=== PATIENT | male | born 1955 | race Caucasian/White ===

== ENCOUNTER 2017-05-20 11:39 | Emergency (ER) | payer BC ==
[~2017-05-20] VITALS: Ht 180.3 cm; Wt 79.9 kg
[2017-05-20 11:59] VITALS: TEMP 36.5; Ht 180.3 cm; Wt 79.9 kg
[2017-05-20] MEDS ORDERED: LEVO175T3 PO (13:44)
[2017-05-20] MEDS ORDERED: SILO8CAP PO (13:44)
[2017-05-20] MEDS ORDERED: LIDOCAINE HCL 2% JELLY 30 ML TUBE EXT PRN (14:00)
[2017-05-20] MEDS ORDERED: AZIT250T PO (14:11)
[2017-05-20 14:38] VITALS: BP 116/88; PULSE 97; O2SAT 97
--- NOTE | 2017-05-20 17:04 | EMERGENCY ROOM VISIT NOTE ---
History First contact with patient: 12:09 Chief Complaint: UNABLE TO VOID Stated Complaint: UNABLE TO URINATE-UNABLE TO SUCCESSFULLY USE CATH Nursing Triage Summary: Pt with TURP on 04/06/17. "I have a bladder that can hold 2-3L of urine and I never realized it." After TURP, pts urethra started to heal and fuse together. Pt then had a follow up procedure for that and has been self cathing 1-2 times a day to maintain patency of urethra. Pt last voided on 05/19/17 2200. Pt originally from [place], here for interview and visiting parents. Pt planned to return to [place] today but father passed. Pt had one catheter left for this AM and he was unable to pass it into the bladder. Called urologist in [place] and was advised to come to ED. History of Present Illness The patient is a 62 year old white male who presents to the Emergency Room with complaints of inability to void. Patient recently had a TURP performed at [facility] 14 weeks ago. He states that he previously had an oversized bladder that could hold 2-3 L of urine. After the TURP, he was having residual volumes of around 600 mL. He was having to catheterize himself daily to keep strictures from forming. He did have one previous episode of retention due to urethral stricture. He was able to catheterize himself last night. This morning, he was unable. He tried several times without success. He spoke with his urologist and was recommended to come to the ED for catheter placement. He denies any nausea or vomiting. He denies any discomfort. No abdominal pain. No other issues. Patient is in town because his father on Sunday. is tomorrow. Review of Systems REVIEW OF SYSTEM: HEENT: No dizziness, visual problems, hearing loss, or tinnitus. There is no difficulty swallowing and no oral lesions are present. PULMONARY: No cough, shortness of breath, sputum production or hemoptysis. CARDIOVASCULAR: No chest pain, palpitations, shortness of breath or peripheral edema. GASTROINTESTINAL: No diarrhea, constipation, nausea, vomiting, or abdominal pain. GENITOURINARY: No dysuria, frequency, urgency or nocturia. Positive for urinary retention NEUROLOGIC: No weakness, muscle tenderness, epilepsy or history of neurological problems. MUSCULOSKELETAL: No history of joint tenderness/swelling. No history of arthritis or arthralgias. SKIN: No rashes or lesions. PSYCHIATRIC: No history of depression or mental illness. ENDOCRINE: No history of diabetes, thyroid disorders, or abnormal hair growth. Past Medical/Surgical History Previous surgeries: TURP 02/03/2017 Medical history: Significant for oversized bladder and history of DVT Family History Significant for heart disease, hypertension, and cancer. Father is . He just 2 days ago. Social History Smoking Status: Never Smoker Smokeless Tobacco Use: No Alcohol Use: none Drug Use: none Marital Status: single, in relationship Housing Status: lives with significant other Occupation Status: unemployed Current/Historical Medications Scheduled Azithromycin (Zithromax), 250 MG PO DAILY Levothyroxine Sodium (Levothyroxine Sodium), 1 TAB PO DAILY Silodosin (Rapaflo), 1 CAP PO DAILY Physical Exam Vital Signs Date Time Temp Pulse Resp B/P (MAP) Pulse Ox O2 Delivery O2 Flow Rate FiO2 05/20/17 14:38 97 18 116/88 97 05/20/17 14:22 97 18 116/88 97 Room Air 05/20/17 11:59 36.5 71 18 143/96 96 Room Air Physical Exam Gen.: Well-developed, well-nourished, middle-aged white male, in no acute distress. Laying on a bed. Alert and oriented. Skin:Warm and dry with good turgor. No rashes or lesions. No ecchymosis or erythema. The patient is not diaphoretic. No abrasions. Abdomen: Abdomen was inspected, auscultated, and palpated. Bowel sounds present x 4. Mildly firm, nontender to palpation. No hepato-splenomegaly. No masses noted. No rebound. No pain over McBurney's point. Palpable distention to the bladder. No CVA tenderness. Genitalia: Normal-appearing external genitalia. No discomfort with palpation. Medical Decision & Procedures ER Provider Diagnostic Interpretation: Bladder scan reveals greater than 1000 ML of retained urine. Medications Administered Medications (Trade) Dose Ordered Sig/Edinson Route Start Time Stop Time Status Last Admin Dose Admin Lidocaine HCl (Xylocaine Jelly 2%) 30 ml TID PRN EXT 05/20/17 14:00 06/19/17 13:59 05/20/17 14:32 30 ML Lidocaine topical jelly 2% ED Course Patient was educated regarding today's findings. Conservative care measures were discussed. He was unable to pass a catheter at home. He does have a large volume of retained urine. Straight catheter was placed here by the manufacturing technician. He obtained more than 1600 mL of urine. Leg bag was attached. Patient will keep the catheter in place for the next 48-72 hours. He was covered with Zithromax 250 mg daily for antibiotic prophylaxis. He stated he didn't get frequent discomfort at the tip of his penis from catheter irritation. He was given a tube of lidocaine jelly to be used when necessary. Follow up with his urologist as soon as possible to discuss further intervention. Clearly the urinary retention is back with much larger volumes of retained urine. Return to the nearest ED in 48 or 72 hours to have the catheter removed. Return with any other concerns. Medical Decision Possibility of infection, urethral stricture, tight sphincter, kidney stone, STD , or surgical complication were all considered. Medication Reconcilliation Current Medication List: was personally reviewed by me Blood Pressure Screening Patient's blood pressure: Normal blood pressure Impression Primary Impression: Acute urinary retention Departure Information Dispostion Home / Self-Care Prescriptions Azithromycin (Zithromax) 250 Mg Tab 250 MG PO DAILY, #3 TAB Prov: Cristobal Earl,P.A. 05/20/17 Forms WORK / SCHOOL INSTRUCTIONS, HOME CARE DOCUMENTATION FORM, TYLENOL USE, IMPORTANT VISIT INFORMATION Patient Instructions [facility] Only-apartments Additional Instructions Follow-up with your urologist to discuss the recurring urinary retention Zithromax 1 pill daily 3 days Apply the lidocaine jelly as needed for catheter discomfort Return in 2 or 3 days for catheter removal Tylenol every 6 hours as needed for discomfort
== END 2017-05-20 14:39 | disposition home or self-care (01) ==
LOC: C.EDB 11:42 → C.EDC 14:39
DX: R33.9 Retention of urine, unspecified (principal); Z86.718 Personal history of other venous thrombosis and embolism; Z82.49 Family history of ischemic heart disease and other diseases of the circulatory system

== ENCOUNTER → 2018-03-12 | Outpatient (CLI) | payer OTHER ==
[~2018-03-12] MED LIST: CIPR-255 PO; ESCI10TA17 PO; LEVO175T3 PO; OXYC-90 PO; SILO8CAP PO; ZOLP5TAB PO
--- NOTE | 2018-03-12 13:38 | DIAGNOSTIC IMAGING REPORT ---
CT SCAN OF THE ABDOMEN AND PELVIS WITHOUT IV CONTRAST CLINICAL HISTORY: Urinary retention. Lower abdominal and pelvic pain. COMPARISON STUDY: No priors. TECHNIQUE: CT scan of the abdomen and pelvis is performed from the lung bases to the proximal femora. Images are reviewed in the axial, sagittal, and coronal planes. IV contrast was not administered for this examination as per the referring clinician. Oral contrast was utilized. A dose lowering technique was utilized adhering to the principles of ALARA. CT DOSE: 323.10 mGy.cm FINDINGS: Lung bases: The heart is normal in size and without pericardial effusion. The lung bases are clear. Liver: The unenhanced liver is normal in size, contour, and attenuation. There is no intrahepatic biliary ductal dilatation. Gallbladder: Unremarkable. Spleen: Normal in size and attenuation. Pancreas: Unremarkable. Adrenal glands: Unremarkable. Kidneys: The unenhanced kidneys are normal in size and without hydronephrosis. There are no renal calculi identified. Renal cysts measure up to 2.3 cm. Additional subcentimeter cortical hypodensities also likely represent cysts but are too small for definitive characterization. Abdominal vasculature: The abdominal aorta is normal in course and caliber. Bowel: There is moderate to severe constipation. No bowel obstruction is seen. The appendix is well-visualized and normal. Peritoneum: There is no intraperitoneal free air or abdominal ascites. Lymphadenopathy: None. Pelvic viscera: The prostate gland is surgically absent, and numerous surgical clips are seen throughout the pelvis. The bladder is distended. The bladder wall appears thickened and trabeculated indicating chronic outlet obstruction. Skeletal structures: The skeletal structures are osteopenic. Mild degenerative change and moderate scoliosis are noted throughout in the lumbar spine. No lytic or blastic lesions are seen. IMPRESSION: 1. The prostate gland is surgically absent. 2. Moderate to severe constipation. 3. The bladder is distended, and the appearance of the bladder suggests chronic outlet obstruction. 4. Additional findings as above. Electronically signed by: Hans Kingston M.D. 03/12/2018 1:37 PM Dictated Date/Time: 03/12/2018 1:31 PM
== END | disposition home or self-care (01) ==
LOC: C.CTS 11:28
PROVIDERS: ATTEND Urology
DX: R33.9 Retention of urine, unspecified (principal); N42.81 Prostatodynia syndrome; Z90.79 Acquired absence of other genital organ(s); K59.00 Constipation, unspecified; N32.89 Other specified disorders of bladder

== ENCOUNTER → 2018-03-18 | Outpatient (CLI) | payer OTHER ==
[~2018-03-18] MED LIST changes: +FENTANYL CITRATE INJ 50 MCG/1 ML 2 ML VIAL ONE; +LIDOCAINE HCL 2% 2 ML VIAL (20MG/ML) ONE; +MIDAZOLAM HCL 1 MG/ML 2ML VIAL ONE; +ONDANSETRON INJ 2 MG/ML 2 ML VIAL ONE; +PROPOFOL IV EMULSION 10 MG/ML 20 ML VIAL ONE
--- NOTE | 2018-03-18 14:43 | DIAGNOSTIC IMAGING REPORT ---
CHEST 2 VIEWS ROUTINE CLINICAL HISTORY: N35.9 Urethral stricture preoperative evaluation COMPARISON STUDY: No previous studies for comparison. FINDINGS: The bones soft tissues and hemidiaphragms are normal. The cardiomediastinal silhouette is normal. The lungs are clear. The pulmonary vasculature is normal. Scoliosis of the thoracic spine. IMPRESSION: No acute process. The above report was generated using voice recognition software. It may contain grammatical, syntax or spelling errors. Electronically signed by: Chris Newberry M.D. 03/18/2018 2:41 PM Dictated Date/Time: 03/18/2018 2:41 PM
[2018-03-18 15:44] LABS: BASO % 0.1 %; BASO ABS # 0.01 K/uL (0-0.2); EOS % 1.3 %; EOS ABS # 0.11 K/uL (0-0.5); HEMATOCRIT 45.1 % (42-52); HEMOGLOBIN 15.7 g/dL (14.0-18.0); IG# 0.02 K/uL (0.00-0.02); LYMPH % 21.9 %; LYMPH ABS # 1.81 K/uL (1.2-3.4); MEAN CORPUSCULAR HEMOGLOBIN 31.3 pg (25-34); MEAN CORPUSCULAR HGB CONC 34.8 g/dl (32-36); MEAN PLATELET VOLUME 10.5 fL (7.4-10.4); MONO % 7.6 %; MONO ABS # 0.63 K/uL (0.11-0.59); NEUT % 68.9 %; PLATELET COUNT 193 K/uL (130-400); RED CELL DISTRIBUTION WIDTH CV 13.3 % (11.5-14.5); RED CELL DISTRIBUTION WIDTH SD 43.7 fL (36.4-46.3); WHITE BLOOD COUNT 8.28 K/uL (4.8-10.8)
[2018-03-18 16:12] LABS: BLOOD UREA NITROGEN 16 mg/dl (7-18); CALCIUM 9.3 mg/dl (8.5-10.1); CARBON DIOXIDE 29 mmol/L (21-32); CREATININE 1.22 mg/dl (0.60-1.40); GLUCOSE 105 mg/dl (70-99); POTASSIUM 3.6 mmol/L (3.5-5.1); SODIUM 137 mmol/L (136-145)
== END | disposition home or self-care (01) ==
LOC: C.CPL 14:13
PROVIDERS: ATTEND Urology
DX: N35.9 Urethral stricture, unspecified (principal)

== ENCOUNTER → 2018-03-19 | Day surgery (SDC) | payer OTHER ==
[2018-03-18 14:27] VITALS: BMI 23.0
[~2018-03-19] VITALS: Ht 180.3 cm; Wt 77.3 kg
[~2018-03-19] MED LIST changes: +ACETAMINOPHEN 325 MG TAB PO PRN; +ATROPINE SULFATE 0.1 MG/ML 5ML SYR IV PRN; +CIPROFLOXACIN / D5W 400 MG IV SCH; +EpHEDrine SULFATE INJ 50 MG/ML AMP IV PRN; -FENTANYL CITRATE INJ 50 MCG/1 ML 2 ML VIAL ONE; +FENTANYL CITRATE INJ 50 MCG/1 ML 2 ML VIAL XX ONE; +HYDROCODONE/ACETAMIN 5/325MG TAB PO PRN; +LACTATED RINGER'S 1000ML 1,000 ML IV SCH; +LIDOCAINE HCL 2% 2 ML VIAL (20MG/ML) INFIL ONE; -LIDOCAINE HCL 2% 2 ML VIAL (20MG/ML) ONE; +MIDAZOLAM HCL 1 MG/ML 2ML VIAL IV ONE; -MIDAZOLAM HCL 1 MG/ML 2ML VIAL ONE; +ONDANSETRON INJ 2 MG/ML 2 ML VIAL IV ONE; -ONDANSETRON INJ 2 MG/ML 2 ML VIAL ONE; +PROPOFOL IV EMULSION 10 MG/ML 20 ML VIAL IV ONE; -PROPOFOL IV EMULSION 10 MG/ML 20 ML VIAL ONE; -SILO8CAP PO; +SODIUM CHLORIDE 0.9% 1000ML 1,000 ML IV SCH
[2018-03-19 15:27] VITALS: BP 122/80; PULSE 53; TEMP 36.7; O2SAT 97; Ht 180.3 cm; Wt 77.3 kg
--- NOTE | 2018-03-19 18:59 | History & Physical Bridge Note ---
H&P Re-Evaluation Bridge Note: I have examined the patient, reviewed the History & Physical and in the interval since the performance of the History & Physical I have noted the following changes of clinical significance: No changes noted
--- NOTE | 2018-03-19 19:16 | Discharge Instructions ---
Discharge Instructions Date of Service Mar 19, 2018. 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 Instructions / Follow-Up Instructions / Follow-Up Dr. Marshall's office will contact you to arrange for catheter removal and follow up. Current Hospital Diet Patient's current hospital diet: Discharge Diet Recommended Diet: Regular Diet Pending Studies Studies pending at discharge: no Medical Emergencies . Who to Call and When: Medical Emergencies: If at any time you feel your situation is an emergency, please call 911 immediately. . Non-Emergent Contact Non-Emergency issues call your: Urologist Call Non-Emergent contact if: you have a fever, temperature is above 101.5, your pain is not controlled, your pain is worsening . . "Provider Documentation" section prepared by Neo Chatman. .
--- NOTE | 2018-03-19 19:48 | [facility] Operative Report ---
Operative Report Operative Date Mar 19, 2018. Pre-Operative Diagnosis Bladder neck contracture Post-Operative Diagnosis Bladder neck contracture Procedure(s) Performed cystoscopy; dilation of bladder neck; catheterization Surgeon Dr. Marshall Industrial Editor Surgeon(s) None Estimated Blood Loss 5cc Specimens None Drains 20F catheter Anesthesia Type General Complication(s) none Disposition yes Recovery Room / PACU Description of Procedure The patient was identified in the preoperative holding area, appropriate informed consents reviewed and completed and the patient was transported to the operating suite. Upon arrival he received appropriate preoperative antibiotics in the form of ciprofloxacin. Adequate general anesthesia was achieved, he was placed in dorsal lithotomy position where he was sterilely prepped and draped in standard fashion. We began the case with passing a 22 Irish cystoscope and 30 lens. Of note his sphincter is intact, but he has a tight bladder neck that is unable to be navigated by the scope. I passed a wire through the scope and through the lumen of the bladder neck, before withdrawing the scope. Utilizing sequential Hosea style dilators, dilated the bladder neck from 14 Irish to 20 Irish. I then reentered with the cystoscope which I was able to gently navigate through the bladder neck and inspect the bladder. He has a large capacity bladder without any other gross abnormalities of the mucosa. Inspection of the bladder neck revealed healthy appearing tissue without stone, foreign body, etc. I left a wire in the bladder after withdrawing the scope and then placed a 20 Irish takotna tip catheter over the wire. Case was subsequently concluded and the patient was extubated and taken to the PACU in stable condition. There were no complications. I attest to the content of the Intraoperative Record and any orders documented therein. Any exceptions are noted below.
--- NOTE | 2018-03-19 20:20 | Anesthesiology Progress Note ---
Anesthesia Post Op Note Date & Time Mar 19, 2018 at 20:20 Vital Signs Pain Intensity: 3 Vital Signs Past 12 Hours Date Time Temp Pulse Resp B/P (MAP) Pulse Ox O2 Delivery O2 Flow Rate FiO2 03/19/18 20:10 53 16 105/72 97 Room Air 03/19/18 20:00 57 16 103/64 97 Room Air 03/19/18 19:53 36.0 54 18 102/65 96 Room Air 03/19/18 15:27 36.7 53 18 122/80 (94) 97 Room Air Notes Mental Status: alert / awake / arousable, participated in evaluation Pt Amnestic to Procedure: Yes Nausea / Vomiting: adequately controlled Pain: adequately controlled Airway Patency, RR, SpO2: stable & adequate BP & HR: stable & adequate Hydration State: stable & adequate Anesthetic Complications: no major complications apparent
[2018-03-19 20:31] VITALS: BP 115/74; PULSE 57; TEMP 36.3; O2SAT 98
[2018-03-19 21:01] VITALS: BP 152/73; PULSE 52; TEMP 36.3; O2SAT 98
== END | disposition home or self-care (01) ==
LOC: C.ACU 15:07
PROVIDERS: ATTEND Urology
DX: N32.0 Bladder-neck obstruction (principal); Z85.46 Personal history of malignant neoplasm of prostate; Z79.899 Other long term (current) drug therapy; F32.9 Major depressive disorder, single episode, unspecified; F41.9 Anxiety disorder, unspecified

== ENCOUNTER 2018-03-22 14:54 | Emergency (ER) | payer OTHER ==
[~2018-03-22] VITALS: Ht 180.3 cm; Wt 76.7 kg
[~2018-03-22 14:54] MED LIST changes: -ACETAMINOPHEN 325 MG TAB PO PRN; -ATROPINE SULFATE 0.1 MG/ML 5ML SYR IV PRN; -CIPROFLOXACIN / D5W 400 MG IV SCH; -EpHEDrine SULFATE INJ 50 MG/ML AMP IV PRN; -FENTANYL CITRATE INJ 50 MCG/1 ML 2 ML VIAL XX ONE; -HYDROCODONE/ACETAMIN 5/325MG TAB PO PRN; -LACTATED RINGER'S 1000ML 1,000 ML IV SCH; -LIDOCAINE HCL 2% 2 ML VIAL (20MG/ML) INFIL ONE; -MIDAZOLAM HCL 1 MG/ML 2ML VIAL IV ONE; -ONDANSETRON INJ 2 MG/ML 2 ML VIAL IV ONE; -OXYC-90 PO; -PROPOFOL IV EMULSION 10 MG/ML 20 ML VIAL IV ONE; -SODIUM CHLORIDE 0.9% 1000ML 1,000 ML IV SCH
[2018-03-22 14:58] VITALS: TEMP 36.5; Ht 180.3 cm; Wt 76.7 kg
--- NOTE | 2018-03-22 15:15 | EMERGENCY ROOM VISIT NOTE ---
History First contact with patient: 15:01 Chief Complaint: ABDOMINAL PAIN Stated Complaint: AB PAIN Nursing Triage Summary: Pt reports recent procedure with Dr. Bassett. Pt had a villa placed last week. Pt reports lower abdominal pain over the last 3 weeks. Pt states that he is also having loss of appetite and decreased bowel movements. Pt states that he took mag citrate last evening because he had not moved bowels in 4 days. Pt was able to move his bowels but this did not relieve his abdominal discomfort. +BS x4, Pt tender in bilateral lower abdominal quad History of Present Illness The patient is a 63 year old male with a history of radical prostatectomy, as well as current catheter placement status post bladder neck dilatation who presents to the Emergency Room with complaints of "abdominal pain". The patient states that about 3-4 weeks now he has been experiencing suprapubic abdominal pain. He suspected that this was likely secondary to urinary retention and notes that he has had a catheter in place, which was placed recently by Dr. Marshall. He notes that he had dilated neck of the bladder. The patient was hopeful that the pain would go away once a catheter could drain the urine however he notes that it has not changed. He is draining urine appropriately. He states that after anesthesia he sometimes experiences slowing of his GI tract, and instead of moving his bowels daily it is now every 2-3 days. He did have magnesium citrate last night which he notes provided bowel cleanout but notes no change in his suprapubic abdominal pain. He points to the suprapubic region extending into the medial lower quadrant as the location of pain that he rates as a 7/10. He denies any fevers or chills. Review of Systems A complete 6-point Review of Systems was discussed with the patient, with pertinent positives and negatives listed in the History of Present Illness. All remaining Review of Systems questions can be considered negative unless otherwise specified. Past Medical/Surgical History Radical prostatectomy Family History No pertinent. Social History Smoking Status: Never Smoker Alcohol Use: none Drug Use: none Marital Status: single, in relationship Housing Status: lives with significant other Occupation Status: employed Current/Historical Medications Scheduled Ciprofloxacin Hcl (Cipro), 500 MG PO BID Escitalopram (Lexapro), 10 MG PO QAM Levothyroxine Sodium (Levothyroxine Sodium), 1 TAB PO QAM Zolpidem Tartrate (Ambien), 5 MG PO HS Scheduled PRN Oxycodone Ir (Roxicodone Ir), 1 TAB PO Q4H PRN for Pain Allergies Coded Allergies: No Known Allergies (Unverified , 03/19/18) Physical Exam Vital Signs Date Time Temp Pulse Resp B/P (MAP) Pulse Ox O2 Delivery O2 Flow Rate FiO2 03/22/18 19:26 62 20 137/79 98 03/22/18 16:41 53 20 113/71 98 Room Air 03/22/18 14:58 36.5 67 18 121/79 98 Room Air Physical Exam VITAL SIGNS - Vital signs and nursing notes were reviewed. Stable. Afebrile. GENERAL -63-year-old male appearing his stated age who is in no acute distress. Communicates well with provider and answers questions appropriately. SKIN - Without rashes. No meningeal or petechial rash. Well-healed surgical scars midline in the suprapubic region. No drainage. No erythema. HEAD - NC/AT. EYES - PERRL with EOMI bilaterally. Sclera anicteric. EARS - No deformities of external structures noted on gross examination bilaterally. NOSE - Midline and without cyanosis. No epistaxis or purulent drainage noted. MOUTH/OROPHARYNX - Without perioral cyanosis. NECK - Neck with FROM. Supple to palpation. No lymphadenopathy noted. No nuchal rigidity. LUNGS - Chest wall symmetric without accessory muscle use, intercostals retractions, or central cyanosis. Normal vesicular breath sounds CTA B/L. No wheezes, rales, or rhonchi appreciated. CARDIAC - RRR with S1/S2. No murmur, rubs, or gallops appreciated. ABDOMEN - Abdominal contour normal without pulsations or visible masses. BS normoactive all four quadrants. There is suprapubic abdominal tenderness noted. No rigid abdomen. Abdomen is soft. No rebound tenderness. No palpable masses, hepatosplenomegaly, or ascites noted. EXTREMITIES - No clubbing or peripheral cyanosis. No pretibial edema present. +5 /5 strength noted in UE/LE bilaterally. NEUROLOGIC - Cranial nerves II through XII grossly intact. Sensory intact to light touch throughout. PSYCH - A&O, and cooperates fully with examiner. Pt is very pleasant and interacts well with examiner. Medical Decision & Procedures ER Provider Diagnostic Interpretation: [~ rep ct add3]] KUB CLINICAL HISTORY: suprapubic abd pain. Hx bladder distension and constipation. COMPARISON STUDY: CT of the abdomen and pelvis March 12, 2018. FINDINGS: Note is made of moderate levoscoliosis of the lumbar spine. Bladder catheter is in place. Surgical clips from prostatectomy are noted. There may be gas within the bladder. There is no evidence for a bowel obstruction. Amount of stool within the colon and rectum is within normal limits. IMPRESSION: 1. No evidence for a bowel obstruction. 2. Unremarkable amount of stool within the colon and rectum. 3. Bladder catheter in place with possible gas within the bladder, not unexpected given catheter. Electronically signed by: Gamaliel Almodovar M.D. 03/22/2018 4:09 PM Dictated Date/Time: 03/22/2018 4:07 PM Laboratory Results 03/22/18 15:50 Red Blood Count 4.68, Mean Corpuscular Volume 89.7, Mean Corpuscular Hemoglobin 31.4, Mean Corpuscular Hemoglobin Concent 35.0, Mean Platelet Volume 10.3, Neutrophils (%) (Auto) 67.4, Lymphocytes (%) (Auto) 20.9, Monocytes (%) (Auto) 9.9, Eosinophils (%) (Auto) 1.4, Basophils (%) (Auto) 0.2, Neutrophils # (Auto) 5.75, Lymphocytes # (Auto) 1.79, Monocytes # (Auto) 0.85, Eosinophils # (Auto) 0.12, Basophils # (Auto) 0.02 03/22/18 15:50 Test 03/22/18 15:50 03/22/18 16:05 White Blood Count 8.55 K/uL (4.8-10.8) Red Blood Count 4.68 M/uL (4.7-6.1) Hemoglobin 14.7 g/dL (14.0-18.0) Hematocrit 42.0 % (42-52) Mean Corpuscular Volume 89.7 fL (80-100) Mean Corpuscular Hemoglobin 31.4 pg (25-34) Mean Corpuscular Hemoglobin Concent 35.0 g/dl (32-36) Platelet Count 161 K/uL (130-400) Mean Platelet Volume 10.3 fL (7.4-10.4) Neutrophils (%) (Auto) 67.4 % Lymphocytes (%) (Auto) 20.9 % Monocytes (%) (Auto) 9.9 % Eosinophils (%) (Auto) 1.4 % Basophils (%) (Auto) 0.2 % Neutrophils # (Auto) 5.75 K/uL (1.4-6.5) Lymphocytes # (Auto) 1.79 K/uL (1.2-3.4) Monocytes # (Auto) 0.85 K/uL (0.11-0.59) Eosinophils # (Auto) 0.12 K/uL (0-0.5) Basophils # (Auto) 0.02 K/uL (0-0.2) RDW Standard Deviation 42.8 fL (36.4-46.3) RDW Coefficient of Variation 13.1 % (11.5-14.5) Immature Granulocyte % (Auto) 0.2 % Immature Granulocyte # (Auto) 0.02 K/uL (0.00-0.02) Anion Gap 9.0 mmol/L (3-11) Est Creatinine Clear Calc Drug Dose 63.5 ml/min Estimated GFR () 68.3 Estimated GFR (Non- 58.9 BUN/Creatinine Ratio 10.9 (10-20) Calcium Level 9.2 mg/dl (8.5-10.1) Urine Color YELLOW Urine Appearance CLEAR (CLEAR) Urine pH 8.0 (4.5-7.5) Urine Specific [place] 1.006 (1.000-1.030) Urine Protein NEG (NEG) Urine Glucose (UA) NEG (NEG) Urine Ketones 1+ (NEG) Urine Occult Blood 1+ (NEG) Urine Nitrite NEG (NEG) Urine Bilirubin NEG (NEG) Urine Urobilinogen NEG (NEG) Urine Leukocyte Esterase TRACE (NEG) Urine WBC (Auto) 1-5 /hpf (0-5) Urine RBC (Auto) 0-4 /hpf (0-4) Urine Hyaline Casts (Auto) 0 /lpf (0-5) Urine Epithelial Cells (Auto) 0-5 /lpf (0-5) Urine Bacteria (Auto) NEG (NEG) Medical Decision Patient was seen and evaluated as above in room B11. Review was performed of nursing notes and vital signs. After obtaining a thorough history and physical examination the above work up was performed. He presents to us today with abdominal pain. He is nontoxic on exam. It is suprapubic in nature. This is been going on for 3-4 weeks. He had a procedure done this past week. KUB was obtained as well as baseline labs. KUB reveals improvement in the constipation , and gas in the bladder which is expected postprocedural. No acute findings. CBC reveals no concerning leukocytosis or emergent anemia. No metabolic emergency. Urinalysis does not reveal infection. I suspect this is likely from the chronic bladder irritation which should be alleviated over time that the bladder neck is not as constrictive. I discussed the case with the attending physician and subsequently urology, I spoke with Dr. Marshall. He is on Nexium performed the procedure. We discussed the case. I informed him upon of today's findings. At this time I do not suspect any emergent process. I believe this is all chronic residual inflammation which will have to decrease over time. Patient was educated upon this. He was felt stable for outpatient management. He is to continue the Cipro per Dr. Marshall. He is to follow-up with him as scheduled in about 1 week. He is to call the family doctor to schedule follow-up. On his bladder scan there is no residual. He is draining appropriate urine and the urine bag. He will be given a short prescription of oxycodone for pain. No red flags in the [place] drug monitoring system. He was educated upon risk versus benefit. The patient was educated upon management, educated upon todays findings/results, educated upon symptoms in which to return, had questions answered prior to discharge, and was discharged home in good condition. Of note the patient denies any rectal pain or pain in the prostate region. He notes with bowel movements there is pain in the suprapubic region but no pain in the posterior aspect of his body. Case was discussed with the attending physician. In the evaluation and treatment of this patient the following differential diagnoses were entertained: Pyelonephritis, cystitis, Villa malfunction, postoperative infection, among others. Impression Primary Impression: Suprapubic discomfort Departure Information Dispostion Home / Self-Care Condition GOOD Prescriptions Oxycodone Ir (Roxicodone Ir) 5 Mg Tab 1 TAB PO Q4H Y for Pain, #18 TAB For Initial Treatment Prov: Segun Bonilla PA-C 03/22/18 Referrals Reji Yi MD (PCP) Selvin Marshall M.D. Patient Instructions My [facility] Additional Instructions You have been treated in the Emergency Department your Abdominal Pain. I suspect much of this pain is coming from the bladder irritation. Please continue the Cipro. Please keep your follow-up with Dr. Marshall. You have been prescribed oxycodone immediate release to be used for pain control. This is a narcotic medication. You cannot drive or consume alcohol while on this medicine. This medicine should only be used for pain that cannot be controlled with [id number] pain medicines. For pain control, you can use the following [id number] medicines (if >12 yo): - Regular strength (325mg/tab) Tylenol (acetaminophen) 2 tabs every 4-6 hours as needed. Do not exceed 12 tablets in a 24 hour period. Avoid taking more than 3 grams (3000 mg) of Tylenol per day. This includes any other sources of acetaminophen you may take on a regular basis. - Regular strength (200 mg/tab) Advil (ibuprofen) 1-2 tabs every 4-6 hours as needed. Do not exceed a dose of 3200 mg per day. Drink plenty of water and stay well hydrated. As with any trip to the Emergency Department, you should follow-up with your Primary Care Provider from today's visit. Return to the emergency department if your symptoms persist despite treatment plan outlined above or if the following symptoms occur: increased fevers, chills , worsening nausea/vomiting, blood in your stool or urine.
[2018-03-22 16:01] LABS: BASO % 0.2 %; BASO ABS # 0.02 K/uL (0-0.2); EOS % 1.4 %; EOS ABS # 0.12 K/uL (0-0.5); HEMOGLOBIN 14.7 g/dL (14.0-18.0); IG# 0.02 K/uL (0.00-0.02); LYMPH % 20.9 %; LYMPH ABS # 1.79 K/uL (1.2-3.4); MEAN CELL VOLUME 89.7 fL (80-100); MEAN CORPUSCULAR HEMOGLOBIN 31.4 pg (25-34); MEAN PLATELET VOLUME 10.3 fL (7.4-10.4); MONO % 9.9 %; MONO ABS # 0.85 K/uL (0.11-0.59); NEUT % 67.4 %; NEUT ABS # 5.75 K/uL (1.4-6.5); PLATELET COUNT 161 K/uL (130-400); RED CELL DISTRIBUTION WIDTH CV 13.1 % (11.5-14.5); RED CELL DISTRIBUTION WIDTH SD 42.8 fL (36.4-46.3); WHITE BLOOD COUNT 8.55 K/uL (4.8-10.8)
--- NOTE | 2018-03-22 16:10 | DIAGNOSTIC IMAGING REPORT ---
KUB CLINICAL HISTORY: suprapubic abd pain. Hx bladder distension and constipation. COMPARISON STUDY: CT of the abdomen and pelvis March 12, 2018. FINDINGS: Note is made of moderate levoscoliosis of the lumbar spine. Bladder catheter is in place. Surgical clips from prostatectomy are noted. There may be gas within the bladder. There is no evidence for a bowel obstruction. Amount of stool within the colon and rectum is within normal limits. IMPRESSION: 1. No evidence for a bowel obstruction. 2. Unremarkable amount of stool within the colon and rectum. 3. Bladder catheter in place with possible gas within the bladder, not unexpected given catheter. Electronically signed by: Gamaliel Almodovar M.D. 03/22/2018 4:09 PM Dictated Date/Time: 03/22/2018 4:07 PM
[2018-03-22 16:28] LABS: CALCIUM 9.2 mg/dl (8.5-10.1); CREATININE 1.3 mg/dl (0.60-1.40); POTASSIUM 4.6 mmol/L (3.5-5.1)
[2018-03-22] MEDS ORDERED: OXYC-90 PO (18:34)
[2018-03-22 19:26] VITALS: BP 137/79; PULSE 62; O2SAT 98
== END 2018-03-22 19:28 | disposition home or self-care (01) ==
LOC: C.EDB 14:55
DX: R10.30 Lower abdominal pain, unspecified (principal); Z79.899 Other long term (current) drug therapy